=== PATIENT | male | born 1955 | race Caucasian/White ===

== ENCOUNTER 2019-01-02 08:15 | Inpatient (IN) | payer BC ==
[2019-01-02] VITALS (14 sets, daily range): BP systolic 84–132; BP diastolic 53–74
[~2019-01-02] VITALS: Ht 172.7 cm; Wt 70.8 kg
--- NOTE | 2019-01-02 08:25 | NUR ---
patient brought by EMS with altered mental status, possible OD of Xanax, patient is pale and cold, pin point pupil noted. non verbal, not responsive. put this patinet on the monitor, showed normal sinus. placed a 20G Iv on left wrist. blood sugar 101 per EMS, Dr Raines at bedside. according to the family, last time saw this patient was yesterday 6~7pm. any bleeding or trauma noted. hx of hypertension, denied taking blood thinners
[2019-01-02 08:57] LABS: *BILIRUBIN,URIN NEGATIVE (NEGATIVE); *CLARITY,URINE CLEAR (CLEAR); *COLOR,URINE YELLOW (YELLOW); *KETONES,URINE NEGATIVE (NEGATIVE); *UROBILINOGEN,URINE 0.2 E.U./dl (NORMAL); LEUKOCYTE ESTERASE ,URINE NEGATIVE (NEGATIVE); NITRITE, URINE NEGATIVE (NEGATIVE); UGLUCOSE NEGATIVE (NEGATIVE)
--- NOTE | 2019-01-02 08:57 | NUR ---
patient left for CT by X-ray Tech
[2019-01-02 09:04] LABS: *BLOOD, URINE NEGATIVE (NEGATIVE); RBC,URINE NONE SEEN /HPF (0-3)
[2019-01-02 09:05] LABS: *AMPHETAMINE, URINE NEGATIVE (NEGATIVE); *BARBITURATE, URINE POSITIVE (NEGATIVE); *CANNABINOID, URINE NEGATIVE (NEGATIVE); *COCCAINE, URINE NEGATIVE (NEGATIVE); *OPIATE, URINE NEGATIVE (NEGATIVE); *PHENCYCLIDINE SCREEN,URINE NEGATIVE (NEGATIVE); BACTERIA,URINE FEW /HPF (NONE SEEN); MUCUS,URINE FEW /LPF (0-FEW); SQUAMOUS EPITHELIAL CELL,UR FEW /HPF (NONE SEEN); WBC,URINE NONE SEEN /HPF (0-3)
[2019-01-02] MEDS ORDERED: UNK BP MED (09:05)
[2019-01-02 09:06] LABS: BASOPHILS % (AUTO) 0.4 % (0.0-2.0); EOSINOPHILS # (AUTO) 0.2 K/uL (0.0-0.7); EOSINOPHILS % (AUTO) 2.3 % (0.0-7.0); HEMATOCRIT 42.7 % (36.7-47.1); HEMOGLOBIN 14.6 g/dL (12.5-16.3); LYMPHOCYTES # (AUTO) 1.3 K/uL (20.0-40.0); LYMPHOCYTES % (AUTO) 18.8 % (20.5-51.5); MEAN CORPUSCULAR HGB CONC 34 g/dL (32.5-36.3); MEAN CORPUSCULAR VOLUME 90.6 fL (73.0-96.2); MONOCYTES # (AUTO) 0.5 K/uL (2.0-10.0); NEUTROPHILS # (AUTO) 4.8 K/uL (1.8-8.9); NEUTROPHILS % (AUTO) 71.5 % (38.5-71.5); PLATELET COUNT (AUTO) 128 K/uL (152-348); RED BLOOD CELL COUNT(AUTO) 4.71 MIL/uL (4.06-5.63); WHITE BLOOD COUNT (AUTO) 6.7 K/uL (3.6-10.2)
--- NOTE | 2019-01-02 09:11 | NUR ---
kaye came back from CT, bedside X-ray competed
[2019-01-02 09:12] LABS: CARBON DIOXIDE 21 mmol/L (21-32); CHLORIDE 107 mmol/L (98-107); GLUCOSE 98 mg/dL (74-106); POTASSIUM 4.4 mmol/L (3.5-5.1); UREA NITROGEN, BLOOD 14 mg/dL (7-18)
[2019-01-02 09:14] LABS: ETHANOL < 3 MG/DL (0-0)
[2019-01-02 09:27] LABS: ACETAMINOPHEN < 2.0 ug/mL (10-30); ALANINE AMINOTRANSFERASE 21 U/L (16-63); ALKALINE PHOSPHATASE 66 U/L (50-136); ASPARTATE AMINOTRANSFERASE 26 U/L (15-37); BILIRUBIN,DIRECT 0.1 mg/dL (0.0-0.2); BILIRUBIN,TOTAL 0.6 mg/dL (0.2-1.0); TOTAL PROTEIN, SERUM 7.6 g/dL (6.4-8.2)
[2019-01-02] MEDS ORDERED: IV NORMAL SALINE 1000 ML BAG IV ONE (09:30)
[2019-01-02 09:34] LABS: THYROID STIMULATING HORMONE 1.437 mIU/mL (0.358-3.740)
--- NOTE | 2019-01-02 10:30 | NUR ---
this patient showed sleep apnea, showed saturation fluctuation from 87% to 100%. applied 2L/mins oxygen via nasal cannula
[2019-01-02] MEDS ORDERED: ETOMIDATE 20 MG/10 ML VIAL IV ONE (10:45)
--- NOTE | 2019-01-02 11:10 | NUR ---
this patient showed low Oxygen saturaion. dropped to 70%, tried to wake him up, changed non breather mask, not working. made Dr Raines aware, paged RT, preparing intubation
[2019-01-02] MEDS ORDERED: PROPOFOL 100 ML ONE (11:38)
--- NOTE | 2019-01-02 11:40 | NUR ---
INTUBATED PATIENT TO TO APNEA AND POOR O2 SATURATION. PLACED ON VENT ROMAN WITH SETTINGS OF AC 16, VT 600, FIO2 100% AND PEEP 5. ABG DONE POST 30 MINUTES WITH RESULT HANDED TO DR. BAKER. ESCORTED BY ALLEN CASTANEDA TO CT AND BACK TO ER POST INTUBATION. 1220 DECREASED FI02 TO 60% AND IN LINE NEBULIZER WAS GIVEN ORDERED. WAITING FOR MORE ORDERS.
[2019-01-02] MEDS ORDERED: IOHEXOL 350 100 ML INFUS..BTL ONE (11:44)
[2019-01-02] MEDS ORDERED: SWABABLE VALVE TRANSFER SET EA MC ONE (11:44)
[2019-01-02] MEDS ORDERED: IV NORMAL SALINE 250 ML IV ONE (11:44)
[2019-01-02] MEDS ORDERED: PROPOFOL 1,000 MG/100 ML BOTTLE IV ONE (11:45)
[2019-01-02] MEDS ORDERED: PIPERACILLIN SODIUM/TAZOBACTAM 3.375 G in IV DEXTROSE 5% 50 ML IV ONE (11:45)
[2019-01-02] MEDS ORDERED: Z GUARD REMEDY PASTE 57 GM TUBE TOP PRN (11:45)
[2019-01-02] MEDS ORDERED: HYDROCODONE/APAP 5-325MG TABLET PO PRN (11:45)
[2019-01-02] MEDS ORDERED: ONDANSETRON 4 MG/2 ML VIAL IV PRN (11:45)
[2019-01-02] MEDS ORDERED: ACETAMINOPHEN 325 MG TABLET PO PRN (11:45)
[2019-01-02] MEDS ORDERED: MAGNESIUM HYDROXIDE 30 ML LIQUID UDC PO PRN (11:45)
[2019-01-02] MEDS ORDERED: ALBUTEROL SULFATE 1.25 MG/3 ML NEBU NEB PRN (11:45)
[2019-01-02] MEDS ORDERED: ALBUTEROL SULFATE 2.5 MG/3 ML NEBU NEB ONE (11:45)
[2019-01-02] MEDS ORDERED: FUROSEMIDE 20 MG/2 ML VIAL IV ONE (11:45)
[2019-01-02] MEDS ORDERED: FUROSEMIDE 40 MG/4 ML VIAL ONE (11:55)
[2019-01-02] MEDS ORDERED: PIPERACILLIN SODIUM/TAZO 3.375 GM VIAL ONE (11:55)
[2019-01-02] MEDS ORDERED: PIPERACILLIN/TAZOBACTAM/D5W 50 ML IV ONE (11:58)
--- NOTE | 2019-01-02 11:58 | NUR ---
transfered to the patient for CT
[2019-01-02 12:06] LABS: ABG BASE EXCESS -5.1 mmol/L; ABG HCO3 22.2 mmol/L; ABG PCO2 49.6 mmHg (35.0-45.0); ABG PH 7.268 (7.350-7.450); ABG PO2 327.8 mmHg (75.0-100.0); ABG SITE RIGHT RADIAL; ABG TOTAL HEMOGLOBIN 15.3 G/dL (13.5-18.0); COHb 0.8 % (0.5-1.5); MetHb 0.5 % (0.0-1.5); O2Hb 98.6 % (94.0-97.0); VENT MODE VENT - A/C; VT, ABG 600 mL
[2019-01-02] MEDS ORDERED: ALBUTEROL SULFATE 2.5 MG/3 ML NEBU ONE (12:15)
--- NOTE | 2019-01-02 12:20 | NUR ---
return from CT
--- NOTE | 2019-01-02 13:00 | NUR ---
gave the report to Kiesha MORRIS.
--- NOTE | 2019-01-02 14:00 | NUR ---
Patient arrival in CCU, patient is on vent a/c with ET tube 26cm, size 7.5 fio2 60%, patient on propofol 10mcg/kg/min. Beckford draining clear yellow urine. Patient was transferred to bed and attacked to monitor. Patient is sedated, wound check performed and found no issues. Patient's heels floated and vitals recoreded.
--- NOTE | 2019-01-02 14:20 | NUR ---
Propofol changed to 25mcg as patient was moving arms and legs in possible discomfort.
[2019-01-02] MEDS: IV NS 1000 ML 1,000 ML IV PRN (14:59)
--- NOTE | 2019-01-02 15:00 | NUR ---
Pulmonary services, Dr. Valencia in the unit to consult patient, full report given see order hx.
--- NOTE | 2019-01-02 15:00 | NUR ---
Attending DIE CASTING SUPERVISOR Brent at bedside requested medication vacation with family at bedside. Patient suctioned ET and oral.
[2019-01-02 15:14] LABS: ABG BASE EXCESS -0.3 mmol/L; ABG HCO3 22.7 mmol/L; ABG PCO2 32.6 mmHg (35.0-45.0); ABG PO2 260.7 mmHg (75.0-100.0); ABG SITE RIGHT BRACHIAL; ABG TOTAL HEMOGLOBIN 15.1 G/dL (13.5-18.0); COHb 0.8 % (0.5-1.5); MetHb 0.4 % (0.0-1.5); O2Hb 98.5 % (94.0-97.0); VENT MODE VENT - A/C; VT, ABG 600 mL
--- NOTE | 2019-01-02 15:25 | NUR ---
with Dr. Valencia in the unit Vent settings changed to Rate A/C 14, Tv500 40% Fio2 to titrate for sat above 94%.
[2019-01-02] MEDS ORDERED: NOREPINEPHRINE BITARTRATE 16 MG in IV DEXTROSE 5% 500 ML IV PRN (15:30)
--- NOTE | 2019-01-02 15:31 | NUR ---
SBP in the mid-90's attending Laura Kennedy notified see order hx.
--- NOTE | 2019-01-02 17:20 | NUR ---
Patient has cough/gag reflex present and frowning. MATE FIRST requested that sedation be continued. MATE FIRST Brent spoke with family and reviewed prognosis with them.
[2019-01-02] MEDS ORDERED: DEXTROSE 50% 50 ML DISP.SYRIN IV PRN (18:15)
[2019-01-02] MEDS ORDERED: INSULIN REGULAR, HUMAN 300 UNIT/3 ML VIAL SQ PRN (18:15)
[2019-01-02] MEDS ORDERED: IV NORMAL SALINE 500 ML IV ONE (18:30)
[2019-01-02] MEDS: PROPOFOL 100 ML IV PRN ×2 (18:48→18:54)
--- NOTE | 2019-01-02 18:55 | NUR ---
Patient has been sedated on propofol 10 mcg/kg/min and appears to be comfortable. Vent on a/c 14 breaths, Fio2 40%, TV 500, PEEP 5. ET tube 25cm, and OG tube on low intermittent suction. Patients barron is draining clear yellow urine. Patient frequently repositioned q2h, and heels floated and elbows offloaded. Patients last vitas are 126/74, p 91, o2sat 100% resp 14. Patient is currently in bed resting comfortably, bed in low position, side rails up x2.
--- NOTE | 2019-01-02 19:20 | NUR ---
PT RECEIVED ORALLY INTUBATED WITH A SIZE 7.5 ETT SECURED WITH ANCHOR-FAST APPROX. 25CM AT THE LIP. PT IS SEDATED ON CMV ON A ROMAN VENT. PT IS ON SETTINGS OF A/C 14, VT 500, PEEP +5, AND 30% FIO2. PT IS TOLERATING VENT WELL, NO SOB NOTED. BVM AT BEDSIDE, VENT PLUGGED INTO RED OUTLET. SUCTION PRN. WILL CONTINUE TO MONITOR.
[2019-01-02] MEDS ORDERED: PIPERACILLIN SODIUM/TAZOBACTAM 3.375 G in IV DEXTROSE 5% 50 ML IV SCH (20:00)
[2019-01-02] MEDS: PIPERACILLIN/TAZOBACTAM/D5W 3.375 G in IV DEXTROSE 5% 50 ML IV SCH (20:39)
[2019-01-02] MEDS: FAMOTIDINE. 20 MG/2 ML VIAL IV SCH (21:39)
[2019-01-02] MEDS: ENOXAPARIN SODIUM 40 MG/0.4 ML DISP.SYRIN SQ SCH (21:39)
[2019-01-02] MEDS: BLOOD SUGAR DIAGNOSTIC 1 EACH STRIP VI SCH (22:09)
[2019-01-03] VITALS (23 sets, daily range): BP systolic 91–144; BP diastolic 46–69
[2019-01-03] MEDS: IV NORMAL SALINE 250 ML IV PRN ×2 (01:48→20:03)
[2019-01-03] MEDS ORDERED: FAMOTIDINE. 20 MG/2 ML VIAL IV ONE (02:52)
[2019-01-03] MEDS: IV NS 1000 ML 1,000 ML IV PRN (03:10)
[2019-01-03] MEDS: BLOOD SUGAR DIAGNOSTIC 1 EACH STRIP VI SCH ×4 (03:18→20:24)
[2019-01-03] MEDS: PIPERACILLIN/TAZOBACTAM/D5W 3.375 G in IV DEXTROSE 5% 50 ML IV SCH ×3 (03:19→20:01)
[2019-01-03 05:33] LABS: BASOPHILS % (AUTO) 0.4 % (0.0-2.0); EOSINOPHILS # (AUTO) 0.1 K/uL (0.0-0.7); EOSINOPHILS % (AUTO) 1.6 % (0.0-7.0); HEMATOCRIT 38.7 % (36.7-47.1); HEMOGLOBIN 13.5 g/dL (12.5-16.3); LYMPHOCYTES # (AUTO) 1.5 K/uL (20.0-40.0); LYMPHOCYTES % (AUTO) 19.1 % (20.5-51.5); MEAN CORPUSCULAR HEMOGLOBIN 32.2 uug (23.8-33.4); MEAN CORPUSCULAR HGB CONC 35 g/dL (32.5-36.3); MONOCYTES # (AUTO) 0.7 K/uL (2.0-10.0); MONOCYTES % (AUTO) 8.8 % (0.0-11.0); NEUTROPHILS # (AUTO) 5.3 K/uL (1.8-8.9); NEUTROPHILS % (AUTO) 70.1 % (38.5-71.5); PLATELET COUNT (AUTO) 123 K/uL (152-348); RED BLOOD CELL COUNT(AUTO) 4.21 MIL/uL (4.06-5.63); WHITE BLOOD COUNT (AUTO) 7.6 K/uL (3.6-10.2)
[2019-01-03 05:51] LABS: CREATININE 1.2 mg/dL (0.6-1.3); MAGNESIUM 1.6 mg/dL (1.8-2.4); PHOSPHOROUS 3.6 mg/dL (2.5-4.9); POTASSIUM 3.2 mmol/L (3.5-5.1)
[2019-01-03 07:59] LABS: ABG BASE EXCESS -0.7 mmol/L; ABG HCO3 22.9 mmol/L; ABG PCO2 34.7 mmHg (35.0-45.0); ABG PH 7.437 (7.350-7.450); ABG PO2 104.3 mmHg (75.0-100.0); ABG SITE RIGHT RADIAL; ABG TOTAL HEMOGLOBIN 14.1 G/dL (13.5-18.0); MetHb 0.4 % (0.0-1.5); O2Hb 96.6 % (94.0-97.0); VENT MODE VENT - A/C; VT, ABG 500 mL
--- NOTE | 2019-01-03 08:00 | NUR ---
Dr. Valencia here to see pt. Full report given. New orders received. spoke with at the bedside.
[2019-01-03] MEDS ORDERED: MAGNESIUM SULFATE/D5W 100 ML IV SCH (08:15)
[2019-01-03] MEDS ORDERED: POTASSIUM CHLORIDE 50 ML IV SCH (08:15)
--- NOTE | 2019-01-03 08:37 | NUR ---
PT RECEIVED ON VENT WITH SETTINGS AC14/VT500/30%/+5 PEEP. ROUTINE ABG DONE, RESULTS NON CRITICAL. PT SEEN BY DR FONTENOT. NO NEW PULMONARY ORDERS AT THIS TIME. PT COMFORTABLE WITH NO DISTRESS. ETT SECURED AND AIRWAY PATENT.
[2019-01-03] MEDS: MAGNESIUM SULFATE/D5W 100 ML IV SCH ×2 (08:51→10:06)
[2019-01-03] MEDS: FAMOTIDINE. 20 MG/2 ML VIAL IV SCH (08:51)
[2019-01-03] MEDS: PROPOFOL 100 ML IV PRN ×2 (09:55→18:53)
[2019-01-03] MEDS: IV DEXTROSE 5W-0.45% NS + KCL 1,000 ML IV SCH ×3 (12:11→21:41)
--- NOTE | 2019-01-03 14:16 | NUR ---
GARO Kennedy here to see pt. Full report given. New orders received.
--- NOTE | 2019-01-03 14:26 | NUR ---
health record technician here to see pt for EEG.
--- NOTE | 2019-01-03 16:53 | NUR ---
IVF med due for 1814. IV bag already scanned still infusing.
--- NOTE | 2019-01-03 19:40 | NUR ---
PT RECEIVED ON VENT AC 14 VT 500 PEEP 5 FIO2 30%. ET TUBE SECURED VIA ANCHOR FAST. BS COARSE. SUCTION SMALL AMOUNT THICK WHITE SECRETIONS. VENT CHECKED, ALARMS WORKING WELL AND AUDIBLE. AMBU BAG AT BEDSIDE. NO DISTRESS NOTED AT THIS TIME. WILL CONTINUE TO MONITOR.
[2019-01-03] MEDS: ENOXAPARIN SODIUM 40 MG/0.4 ML DISP.SYRIN SQ SCH (20:28)
--- NOTE | 2019-01-03 23:47 | NUR ---
Documented from cardiac exercise physiologist nonconducted beat (see strip).
[2019-01-04] VITALS (24 sets, daily range): BP systolic 103–156; BP diastolic 47–80
[2019-01-04] MEDS: BLOOD SUGAR DIAGNOSTIC 1 EACH STRIP VI SCH ×4 (02:57→20:42)
[2019-01-04] MEDS: PIPERACILLIN/TAZOBACTAM/D5W 3.375 G in IV DEXTROSE 5% 50 ML IV SCH ×4 (03:47→19:57)
[2019-01-04] MEDS: PROPOFOL 100 ML IV PRN (05:17)
[2019-01-04 05:21] LABS: BASOPHILS % (AUTO) 0.6 % (0.0-2.0); EOSINOPHILS # (AUTO) 0.2 K/uL (0.0-0.7); EOSINOPHILS % (AUTO) 3.9 % (0.0-7.0); HEMATOCRIT 36.4 % (36.7-47.1); HEMOGLOBIN 12.8 g/dL (12.5-16.3); LYMPHOCYTES # (AUTO) 1.8 K/uL (20.0-40.0); LYMPHOCYTES % (AUTO) 28.4 % (20.5-51.5); MEAN CORPUSCULAR HEMOGLOBIN 32.3 uug (23.8-33.4); MEAN CORPUSCULAR HGB CONC 35 g/dL (32.5-36.3); MEAN CORPUSCULAR VOLUME 92.2 fL (73.0-96.2); MONOCYTES # (AUTO) 0.6 K/uL (2.0-10.0); MONOCYTES % (AUTO) 9.3 % (0.0-11.0); NEUTROPHILS # (AUTO) 3.6 K/uL (1.8-8.9); NEUTROPHILS % (AUTO) 57.8 % (38.5-71.5); PLATELET COUNT (AUTO) 105 K/uL (152-348); RED BLOOD CELL COUNT(AUTO) 3.95 MIL/uL (4.06-5.63); WHITE BLOOD COUNT (AUTO) 6.2 K/uL (3.6-10.2)
[2019-01-04 06:10] LABS: CREATININE 1.2 mg/dL (0.6-1.3); MAGNESIUM 2.2 mg/dL (1.8-2.4); PHOSPHOROUS 2.2 mg/dL (2.5-4.9); POTASSIUM 3.4 mmol/L (3.5-5.1)
[2019-01-04 07:18] LABS: ABG BASE EXCESS -2.2 mmol/L; ABG HCO3 22.6 mmol/L; ABG PH 7.381 (7.350-7.450); ABG PO2 87.9 mmHg (75.0-100.0); ABG SITE RIGHT RADIAL; ABG TOTAL HEMOGLOBIN 13.6 G/dL (13.5-18.0); COHb 0.6 % (0.5-1.5); CPAP,BG 0 cmH20; MetHb 0.4 % (0.0-1.5); O2Hb 95.5 % (94.0-97.0); VENT MODE VENT - CPAP/PS6; VT, ABG 471 mL
--- NOTE | 2019-01-04 07:20 | NUR ---
ERROR: previous note documented under wrong user ID. Received report from soldering machine operator nurse, patient in bed on CPAP trial. Oxygen Saturation is 100%, propofol on 5mcg, patient's barron draining clear yellow urine, Air mattress is inflated, IV's patent and running. DVT pumps on. Bed in low position, side rails up x2
--- NOTE | 2019-01-04 07:20 | NUR ---
Received report from night guard nurse, patient in bed on CPAP trial. Oxygen Saturation is 100%, propofol on 5mcg, patient's barron draining clear yellow urine, Air mattress is inflated, IV's patent and running. DVT pumps on. Bed in low position, side rails up x2.
--- NOTE | 2019-01-04 07:45 | NUR ---
pt rec'd orally intubated weaning on ps6, abg's drawn and report. order was rec'd to extubate per Dr Valencia. pt was extubated @ 0745 and placed on low flow O2.
--- NOTE | 2019-01-04 07:45 | NUR ---
Patient was extubated per MD Valencia order. RT and this editorial writer at bedside to monitor patient. Patient 02 sat is 97% on 2L nasal canula. No distress noted, oral secretions suctioned.
[2019-01-04] MEDS: IV DEXTROSE 5W-0.45% NS + KCL 1,000 ML IV SCH ×2 (07:49→18:32)
[2019-01-04] MEDS ORDERED: DC PROPOFOL ONCE EXTUBATED XX PRN (07:50)
--- NOTE | 2019-01-04 08:10 | NUR ---
Patient noted to be crying and stating that he does not want to be here. Patient's states that, "he has been very depressed and stressed".
--- NOTE | 2019-01-04 08:57 | NUR ---
Contacted physician and let her know that he continues to cry periodically and a received an order to contact psychiatry seasonal customer service associate, and Crisis team. Calls placed to [facility] and message left for Dr. Juarez.
[2019-01-04] MEDS: FAMOTIDINE. 20 MG/2 ML VIAL IV SCH (09:41)
[2019-01-04] MEDS: POTASSIUM PHOSPHATE MM 7.5 MMOL in IV DEXTROSE 5% 100 ML IV SCH ×2 (09:41→12:23)
[2019-01-04] MEDS ORDERED: CARV40CP PO (12:21)
--- NOTE | 2019-01-04 12:25 | NUR ---
Patient refused to have Zosyn. It was explained that he has aspirartion pneumonia, and fever on intubation. Patient continues to refuse zosyn.
--- NOTE | 2019-01-04 13:00 | NUR ---
Notified physician that patient is refusing to have his Zosyn.
[2019-01-04] MEDS ORDERED: HOME MED MISCELLANEOUS XX SCH (15:00)
[2019-01-04] MEDS: COREG 40 MG PO SCH (16:00)
--- NOTE | 2019-01-04 16:00 | NUR ---
Patient was informed that he has a mild temperature and encouraged again to continue with antibiotics but patient still refused.
[2019-01-04] MEDS ORDERED: CARVEDILOL 12.5 MG TABLET PO SCH (18:00)
--- NOTE | 2019-01-04 19:24 | NUR ---
Patient resting comfortable in bed, on room air, air mattress inflated, vitals stable, patient using bedside commode. IV fluids running, and Right upper arm midline patent. Patient saturating 98% on room air. No distress noted.
[2019-01-04] MEDS: IV NORMAL SALINE 250 ML IV PRN (19:57)
[2019-01-04] MEDS: ENOXAPARIN SODIUM 40 MG/0.4 ML DISP.SYRIN SQ SCH (20:37)
[2019-01-05] VITALS (9 sets, daily range): BP systolic 116–158; BP diastolic 42–83
[2019-01-05] MEDS: BLOOD SUGAR DIAGNOSTIC 1 EACH STRIP VI SCH ×2 (03:36→08:34)
[2019-01-05] MEDS: PIPERACILLIN/TAZOBACTAM/D5W 3.375 G in IV DEXTROSE 5% 50 ML IV SCH (03:36)
[2019-01-05] MEDS: IV DEXTROSE 5W-0.45% NS + KCL 1,000 ML IV SCH (04:01)
--- NOTE | 2019-01-05 06:00 | NUR ---
Patient refused morning lab & CXR.
--- NOTE | 2019-01-05 07:15 | NUR ---
Nursing Note: Pt refused ABG this morning.
--- NOTE | 2019-01-05 07:49 | NUR ---
Nursing Note: Seen and evaluated by Dr. Valencia.
--- NOTE | 2019-01-05 08:07 | NUR ---
Nursing Note: Pt requested to use the bedside commode. Pt jumping in and out of bed. Encouraged pt to change position slowly. Noted to have unsteady gait.
--- NOTE | 2019-01-05 08:10 | NUR ---
Nursing Note: Left voicemail to regarding wishing to leave.
--- NOTE | 2019-01-05 08:15 | NUR ---
Nursing Note: at bedside.
[2019-01-05] MEDS: COREG 40 MG PO SCH (08:24)
[2019-01-05] MEDS: FAMOTIDINE. 20 MG/2 ML VIAL IV SCH (08:25)
--- NOTE | 2019-01-05 09:00 | NUR ---
Nursing Note: Pt leaving against medical advices
--- NOTE | 2019-01-05 09:11 | NUR ---
Nursing Note: Discontinued all patient lines.
--- NOTE | 2019-01-05 09:27 | NUR ---
Nursing Note: Antibiotic prescription provided, letter provided. DEMO SPECIALIST at bedside prior to AMA to reinforce recommendations.
[2019-01-05] MEDS ORDERED: ATOR20TA PO (10:14)
[2019-01-05] MEDS ORDERED: LEVO500T2 PO (10:14)
== END 2019-01-05 09:45 | disposition left against medical advice (07) | DRG 917 ==
LOC: ER 08:15 → CCU 13:24
PROVIDERS: ADMIT Nurse Practitioner Acute Care; ATTEND Nurse Practitioner Acute Care
PROC: 5A1945Z Respiratory Ventilation, 24-96 Consecutive Hours (ICD-10-PCS; principal; 2019-01-02)
PROC: 05H933Z Insertion of Infusion Device into Right Brachial Vein, Percutaneous Approach (ICD-10-PCS; principal; 2019-01-02)
PROC: 0D9670Z Drainage of Stomach with Drainage Device, Via Natural or Artificial Opening (ICD-10-PCS; principal; 2019-01-02)
PROC: 0BH17EZ Insertion of Endotracheal Airway into Trachea, Via Natural or Artificial Opening (ICD-10-PCS; principal; 2019-01-02)
DX: T42.3X1A Poisoning by barbiturates, accidental (unintentional), initial encounter (principal); I63.9 Cerebral infarction, unspecified; J96.01 Acute respiratory failure with hypoxia; G92 Toxic encephalopathy; J69.0 Pneumonitis due to inhalation of food and vomit; R40.2112 Coma scale, eyes open, never, at arrival to emergency department; R40.2212 Coma scale, best verbal response, none, at arrival to emergency department; D68.59 Other primary thrombophilia; J98.11 Atelectasis; T42.4X1A Poisoning by benzodiazepines, accidental (unintentional), initial encounter; Y92.013 Bedroom of single-family (private) house as the place of occurrence of the external cause; Z74.09 Other reduced mobility; R40.2352 Coma scale, best motor response, localizes pain, at arrival to emergency department; I10 Essential (primary) hypertension; K21.9 Gastro-esophageal reflux disease without esophagitis; K27.9 Peptic ulcer, site unspecified, unspecified as acute or chronic, without hemorrhage or perforation; K58.9 Irritable bowel syndrome, unspecified; E78.5 Hyperlipidemia, unspecified; N40.0 Benign prostatic hyperplasia without lower urinary tract symptoms; G40.909 Epilepsy, unspecified, not intractable, without status epilepticus
CPT/HCPCS: 36415; 36569; 36600; 70030-TC; 70450; 71045; 71275; 80307; 83605; 83735; 84100; 84443; 85025; 85730; 87040; 87070; 87077; 87086; 93005; 93307; 94002; 94003; A4663; G0378; G0480; G0480-TC; J1650; J1815; J1940; J2543; J3475; J3490; J7030; J7040; J7050; J7060; Q9967